=== PATIENT | female | born 1950 | race Two or more races ===

== ENCOUNTER 2021-06-24 05:40 | Day surgery (SDC) | payer OTHER ==
[~2021-06-24 05:40] MED LIST: IRBESARTAN-HCT1 EAC1 PO; METFORMIN HCL500 M3 PO; PEPCID AC20 MG PO; PROTONIX40 MG PO; SINGULAIR10 MG PO; SYNTHROID88 MCG PO; ZESTRIL10 M1 PO; ZOCOR40 MG PO
== END 2021-06-24 10:20 | disposition home or self-care (01) ==
LOC: CIR.AMB 05:40
PROVIDERS: ATTEND Surgery Surgery of the Hand
DX: M65.841 Other synovitis and tenosynovitis, right hand (principal)

== ENCOUNTER 2022-02-10 05:50 | Day surgery (SDC) | payer OTHER | END 2022-02-10 10:50 | disposition home or self-care (01) | LOC: CIR.AMB 05:50 | PROVIDERS: ATTEND Surgery Surgery of the Hand | DX: M65.842 Other synovitis and tenosynovitis, left hand (principal); Z20.822 Contact with and (suspected) exposure to COVID-19; Z88.0 Allergy status to penicillin; I10 Essential (primary) hypertension; E11.9 Type 2 diabetes mellitus without complications; E03.9 Hypothyroidism, unspecified ==